=== PATIENT | male | born 2005 | race African-American/Black ===

== ENCOUNTER 2024-09-13 16:25 | Emergency (ER) | payer BC ==
[~2024-09-13] VITALS: Ht 180.3 cm; Wt 88.5 kg
[2024-09-13] MEDS ORDERED: AMOX-430 PO (17:08)
[2024-09-13] MEDS ORDERED: ACET10DR15 RIGHT EAR (17:08)
[2024-09-13 17:13] VITALS: BP 117/60; TEMP 98; O2SAT 99
== END 2024-09-13 17:13 | disposition home or self-care (01) ==
LOC: ER 16:27
DX: H92.01 Otalgia, right ear (principal); Z86.79 Personal history of other diseases of the circulatory system
CPT/HCPCS: A4606; A4663